=== PATIENT | male | born 1955 | race American Indian/Alaskan Native ===

== ENCOUNTER 2019-04-26 12:54 | Inpatient (IN) | payer MEDICAID ==
--- NOTE | 2019-04-26 14:01 | XRay Report ---
CHEST 1 VIEW 04/26/2019 1:31 PM INDICATION / CLINICAL INFORMATION: chest pain. COMPARISON: Chest x-ray 10/13/2018 FINDINGS: SUPPORT DEVICES: None. HEART / MEDIASTINUM: No significant abnormality. LUNGS / PLEURA: Right upper lobe bronchiectasis/pleural parenchymal scarring is unchanged. No pneumot horax. ADDITIONAL FINDINGS: No significant additional findings. IMPRESSION: 1. Stable chest. Signer Name: Adria Galvin MD Signed: 04/26/2019 1:56 PM Workstation Name: [id number]
[2019-04-26 14:07] LABS: Creatine Kinase MB 1.3 ng/mL (0.0-4.0)
[2019-04-26 14:10] LABS: BUN/Creatinine Ratio 37; Blood Urea Nitrogen 33 mg/dL (9-20); Calcium 9.2 mg/dL (8.4-10.2); Hemolysis Index 22
[2019-04-26 14:11] LABS: Basophils # (Auto) 0.1 K/mm3 (0.0-0.1); Basophils % (Auto) 0.4 % (0.0-1.8); Eosinophils % (Auto) 0.3 % (0.0-4.3); Hematocrit 43.6 % (35.5-45.6); Hemoglobin 14.7 gm/dl (11.8-15.2); Lymphocytes # (Auto) 2.2 K/mm3 (1.2-5.4); Lymphocytes % (Auto) 16.4 % (13.4-35.0); Mean Corpuscular HGB Conc 34 % (32-34); Mean Corpuscular Volume 90 fl (84-94); Monocytes # (Auto) 1.1 K/mm3 (0.0-0.8); Monocytes % (Auto) 8.4 % (0.0-7.3); Platelet Count 209 K/mm3 (140-440); Red Blood Count 4.85 M/mm3 (3.65-5.03); Red Cell Distribution Width 13.7 % (13.2-15.2)
[2019-04-26] MEDS ORDERED: ONDANSETRON 4 MG/2 ML INJ IV ONE ×2 (14:42→21:30)
[2019-04-26] MEDS ORDERED: MORPHINE 4 MG/1 ML INJ IV ONE ×2 (14:42→21:30)
[2019-04-26] MEDS ORDERED: SODIUM CHLORIDE 0.9% 1000 ML 1,000 ML IV ONE ×2 (14:42→16:55)
--- NOTE | 2019-04-26 14:44 | Emergency Department Report ---
ED Chest Pain HPI - General Chief Complaint: Chest Pain Stated Complaint: CHEST PAIN Time Seen by Provider: 04/26/19 14:31 Source: EMS Mode of arrival: Stretcher Limitations: No Limitations - History of Present Illness Severity scale (0 -10): 9 - Related Data Previous Rx's Medication Instructions Recorded Last Taken Type Folic Acid [Folvite] 1 mg PO QDAY #30 tablet 07/18/13 Unknown Rx Hydrocodone Bit/Acetaminophen 1 each PO Q8H PRN #20 tablet 07/18/13 Unknown Rx [Lortab 7.5-500 mg] Nicotine [Habitrol] 14 mg TD Q24H #30 patch 07/18/13 Unknown Rx Pantoprazole [Protonix TAB] 40 mg PO QDAY #30 tablet 07/18/13 Unknown Rx Thiamine [Vitamin B-1] 100 mg PO QDAY #30 tablet 07/18/13 Unknown Rx Allergies Allergy/AdvReac Type Severity Reaction Status Date / Time No Known Allergies Allergy Unverified 07/15/13 16:33 ED Review of Systems ROS: Stated complaint: CHEST PAIN Other details as noted in HPI ED Past Medical Hx - Past Medical History Hx Congestive Heart Failure: No Hx Diabetes: No Hx Liver Disease: Yes (hepatitis C) Hx Headaches / Migraines: Yes (migraines on admission) Hx Asthma: No Hx COPD: No Hx HIV: Yes Additional medical history: alcohol abuse. Hepatitis - Surgical History Additional Surgical History: ? - Social History Smoking Status: Current Every Day Smoker Substance Use Type: Alcohol - Medications Home Medications: Home Medications Medication Instructions Recorded Confirmed Last Taken Type Folic Acid [Folvite] 1 mg PO QDAY #30 tablet 07/18/13 Unknown Rx Hydrocodone Bit/Acetaminophen 1 each PO Q8H PRN #20 tablet 07/18/13 Unknown Rx [Lortab 7.5-500 mg] Nicotine [Habitrol] 14 mg TD Q24H #30 patch 07/18/13 Unknown Rx Pantoprazole [Protonix TAB] 40 mg PO QDAY #30 tablet 07/18/13 Unknown Rx Thiamine [Vitamin B-1] 100 mg PO QDAY #30 tablet 07/18/13 Unknown Rx ED Physical Exam - General Limitations: No Limitations ED Course Vital Signs 04/26/19 04/26/19 04/26/19 13:14 13:25 13:29 Temperature 98.7 F 98.7 F Pulse Rate 90 90 Respiratory 17 23 22 Rate Blood Pressure 93/67 [Left] O2 Sat by Pulse 94 96 Oximetry ED Medical Decision Making - Lab Data Result diagrams: 04/26/19 13:17 04/26/19 13:17 - Radiology Data Radiology results: report reviewed Patient: ZURI CASTANEDA MR#: [id number] : 1955 Acct:[id number] Age/Sex: 64 / M ADM Date: 04/26/19 Loc: ED Attending Dr: Ordering Physician: MAYLIN NICHOLAS MD Date of Service: 04/26/19 Procedure(s): XR chest 1V ap Accession Number(s): [id number] cc: MAYLIN NICHOLAS MD Fluoro Time In Minutes: CHEST 1 VIEW 04/26/2019 1:31 PM INDICATION / CLINICAL INFORMATION: chest pain. COMPARISON: Chest x-ray 10/13/2018 FINDINGS: SUPPORT DEVICES: None. HEART / MEDIASTINUM: No significant abnormality. LUNGS / PLEURA: Right upper lobe bronchiectasis/pleural parenchymal scarring is unchanged. No pneumothorax. ADDITIONAL FINDINGS: No significant additional findings. IMPRESSION: 1. Stable chest. Signer Name: Adria Galvin MD Signed: 04/26/2019 1:56 PM Workstation Name: [id number] Transcribed By: TL Dictated By: Adria Galvin MD Electronically Authenticated By: Adria Galvin MD Signed Date/Time: 04/26/19 1356 DD/ 1354 TD/TT: Critical care attestation.: If time is entered above; I have spent that time in minutes in the direct care of this critically ill patient, excluding procedure time. ED Disposition Condition: Stable
[2019-04-26] MEDS ORDERED: SODIUM CHLORIDE 0.9% 1000 ML 1,000 ML ONE (14:45)
[2019-04-26] MEDS ORDERED: ONDANSETRON 4 MG/2 ML INJ ONE ×2 (14:45→21:28)
[2019-04-26] MEDS ORDERED: MORPHINE 4 MG/1 ML INJ ONE (14:45)
--- NOTE | 2019-04-26 14:49 | Emergency Department Report ---
ED General Adult HPI - General Chief complaint: Chest Pain Stated complaint: CHEST PAIN Time Seen by Provider: 04/26/19 14:31 Source: EMS Mode of arrival: Stretcher Limitations: No Limitations - History of Present Illness Initial comments: 64-year-old -[place] male presented to the emergency room for chest pain and epigastric pain 4 days. Patient reports he he has nausea vomiting decreased appetite. Patient reports he's been drinking a lot of alcohol to help with this pain. Patient does have a significant past medical history of HIV, pancreatitis. Patient reports no surgeries. Patient reports he is on HIV medications and vitamins. Onset/Timin -: days(s) Location: chest, abdomen (epigastric) Severity scale (0 -10): 9 Quality: stabbing, sharp Consistency: constant Improves with: none Worsens with: none Associated Symptoms: loss of appetite, nausea/vomiting. denies: fever/chills Treatments Prior to Arrival: none - Related Data Previous Rx's Medication Instructions Recorded Last Taken Type Folic Acid [Folvite] 1 mg PO QDAY #30 tablet 07/18/13 Unknown Rx Hydrocodone Bit/Acetaminophen 1 each PO Q8H PRN #20 tablet 07/18/13 Unknown Rx [Lortab 7.5-500 mg] Nicotine [Habitrol] 14 mg TD Q24H #30 patch 07/18/13 Unknown Rx Pantoprazole [Protonix TAB] 40 mg PO QDAY #30 tablet 07/18/13 Unknown Rx Thiamine [Vitamin B-1] 100 mg PO QDAY #30 tablet 07/18/13 Unknown Rx Allergies Allergy/AdvReac Type Severity Reaction Status Date / Time No Known Allergies Allergy Unverified 07/15/13 16:33 ED Review of Systems ROS: Stated complaint: CHEST PAIN Other details as noted in HPI Comment: All other systems reviewed and negative Constitutional: no symptoms reported. denies: chills, fever Eyes: denies: eye pain, eye discharge, vision change ENT: denies: ear pain, throat pain Respiratory: no symptoms reported Cardiovascular: chest pain Gastrointestinal: abdominal pain, nausea, vomiting Genitourinary: denies: urgency, dysuria Musculoskeletal: denies: back pain, joint swelling, arthralgia Skin: denies: rash, lesions Neurological: denies: headache, weakness, paresthesias ED Past Medical Hx - Past Medical History Hx Congestive Heart Failure: No Hx Diabetes: No Hx Liver Disease: Yes (hepatitis C) Hx Headaches / Migraines: Yes (migraines on admission) Hx Asthma: No Hx COPD: No Hx HIV: Yes Additional medical history: alcohol abuse. Hepatitis - Surgical History Additional Surgical History: ? - Social History Smoking Status: Current Every Day Smoker Substance Use Type: Alcohol - Medications Home Medications: Home Medications Medication Instructions Recorded Confirmed Last Taken Type Folic Acid [Folvite] 1 mg PO QDAY #30 tablet 07/18/13 Unknown Rx Hydrocodone Bit/Acetaminophen 1 each PO Q8H PRN #20 tablet 07/18/13 Unknown Rx [Lortab 7.5-500 mg] Nicotine [Habitrol] 14 mg TD Q24H #30 patch 07/18/13 Unknown Rx Pantoprazole [Protonix TAB] 40 mg PO QDAY #30 tablet 07/18/13 Unknown Rx Thiamine [Vitamin B-1] 100 mg PO QDAY #30 tablet 07/18/13 Unknown Rx ED Physical Exam - General Limitations: No Limitations General appearance: cachectic, other (temporal wasting) - Head Head exam: Present: atraumatic, normocephalic - Eye Eye exam: Present: PERRL, EOMI - ENT ENT exam: Present: mucous membranes moist - GI/Abdominal GI/Abdominal exam: Present: tenderness, guarding - Neurological Exam Neurological exam: Present: alert, oriented X3 - Psychiatric Psychiatric exam: Present: normal affect, normal mood - Skin Skin exam: Present: warm, dry, intact, normal color. Absent: rash ED Course Vital Signs 04/26/19 04/26/19 04/26/19 13:14 13:20 13:25 Temperature 98.7 F Pulse Rate 90 91 H Respiratory 17 21 23 Rate Blood Pressure Blood Pressure [Left] O2 Sat by Pulse 99 94 Oximetry 04/26/19 04/26/19 04/26/19 13:29 13:30 13:46 Temperature 98.7 F Pulse Rate 90 89 89 Respiratory 22 18 24 Rate Blood Pressure 93/67 93/67 Blood Pressure 93/67 [Left] O2 Sat by Pulse 96 96 96 Oximetry 04/26/19 04/26/19 04/26/19 14:00 14:15 14:30 Temperature Pulse Rate 94 H 90 90 Respiratory 17 18 17 Rate Blood Pressure 102/68 96/70 101/70 Blood Pressure [Left] O2 Sat by Pulse 95 Oximetry 04/26/19 04/26/19 14:45 14:54 Temperature Pulse Rate 93 H Respiratory 24 18 Rate Blood Pressure 100/69 Blood Pressure [Left] O2 Sat by Pulse 97 Oximetry ED Medical Decision Making - Lab Data Result diagrams: 04/26/19 13:17 04/26/19 13:17 Laboratory Tests 04/26/19 04/26/19 04/26/19 13:17 13:17 13:17 WBC 13.3 H RBC 4.85 Hgb 14.7 Hct 43.6 MCV 90 MCH 30 MCHC 34 RDW 13.7 Plt Count 209 Lymph % (Auto) 16.4 [place] % (Auto) 8.4 H Eos % (Auto) 0.3 Baso % (Auto) 0.4 Lymph # 2.2 [place] # 1.1 H Eos # 0.0 Baso # 0.1 Seg Neutrophils % 74.5 H Seg Neutrophils # 9.9 H Sodium 133 L Potassium 3.0 L Chloride 80.4 L Carbon Dioxide 30 Anion Gap 26 BUN 33 H Creatinine 0.9 Estimated GFR > 60 BUN/Creatinine Ratio 37 Glucose 116 H Calcium 9.2 Total Creatine Kinase 99 CK-MB (CK-2) 1.3 CK-MB (CK-2) Rel Index 1.3 Troponin T < 0.010 NT-Pro-B Natriuret Pep 319.5 Lipase 38 - Radiology Data Radiology results: report reviewed Patient: ZURI CASTANEDA MR#: [id number] : 1955 Acct:[id number] Age/Sex: 64 / M ADM Date: 04/26/19 Loc: ED Attending Dr: Ordering Physician: GAGAN WILKINS Date of Service: 04/26/19 Procedure(s): CT abdomen pelvis w con Accession Number(s): [id number] cc: GAGAN WILKINS CT CHEST, ABDOMEN, AND PELVIS WITH IV CONTRAST INDICATION / CLINICAL INFORMATION: epigastric pain w/ N/V. TECHNIQUE: Axial CT images were obtained through the chest, abdomen, and pelvis after 100 cc Omnipaque [address] scans at this location are performed using CT dose reduction for ALARA by means of automated exposure control. COMPARISON: None available. FINDINGS: Exam is limited secondary to moderate amount of respiratory artifact. HEART: No significant abnormality. THORACIC AORTA: No significant abnormality. MEDIASTINUM and JORDAN: No significant abnormality. LUNGS: Right upper lobe volume loss, scarring and bronchiectasis. Moderate destructive biapical bullous emphysema PLEURA: No significant pleural effusion. No pneumothorax. ADDITIONAL CHEST FINDINGS: None. LIVER: No significant abnormality. GALLBLADDER: Several tiny gallstones without CT evidence for cholecystitis. BILE DUCTS: No significant abnormality. PANCREAS: No significant abnormality. SPLEEN: No significant abnormality. ADRENALS: Bilateral plump adrenal glands without suspicious adrenal nodule or mass. RIGHT KIDNEY and URETER: No significant abnormality. LEFT KIDNEY and URETER: No significant abnormality. STOMACH and SMALL BOWEL: No significant abnormality. COLON: No significant abnormality. APPENDIX: Normal PERITONEUM: No free fluid. No free air. No fluid collection. LYMPH NODES: No significant adenopathy. AORTA and ARTERIES: Moderate vascular calcifications. No occlusive disease. IVC and VEINS: No significant abnormality. URINARY BLADDER: No significant abnormality. REPRODUCTIVE ORGANS: No significant abnormality. ADDITIONAL FINDINGS: None. SKELETAL SYSTEM: Moderate degenerative changes of lower lumbar spine with chronic bilateral L5 spondylolysis and grade 1 anterolisthesis of L5 on S1. IMPRESSION: 1. Right upper lobe bronchiectasis/scarring and volume loss. 2. Destructive bullous emphysema. 3. Cholelithiasis. Signer Name: Adria Galvin MD Signed: 04/26/2019 4:43 PM Workstation Name: [id number] Transcribed By: TL Dictated By: Adria Galvin MD Electronically Authenticated By: Adria Galvin MD Signed Date/Time: 04/26/19 164 DD/ 36 TD/TT: Patient: ZURI CASTANEDA MR#: [id number] : 1955 Acct:[id number] Age/Sex: 64 / M ADM Date: 04/26/19 Loc: ED Attending Dr: Ordering Physician: MAYLIN NICHOLAS MD Date of Service: 04/26/19 Procedure(s): XR chest 1V ap Accession Number(s): [id number] cc: MAYLIN NICHOLAS MD Fluoro Time In Minutes: CHEST 1 VIEW 04/26/2019 1:31 PM INDICATION / CLINICAL INFORMATION: chest pain. COMPARISON: Chest x-ray 10/13/2018 FINDINGS: SUPPORT DEVICES: None. HEART / MEDIASTINUM: No significant abnormality. LUNGS / PLEURA: Right upper lobe bronchiectasis/pleural parenchymal scarring is unchanged. No pneumothorax. ADDITIONAL FINDINGS: No significant additional findings. IMPRESSION: 1. Stable chest. Signer Name: Adria Galvin MD Signed: 04/26/2019 1:56 PM Workstation Name: [id number] Transcribed By: TL Dictated By: Adria Galvin MD Electronically Authenticated By: Adria Galvin MD Signed Date/Time: 04/26/191355 DD/ 53 TD/TT: - Medical Decision Making 64-year-old -[place] male presented to the emergency room for chest pain and epigastric pain 4 days. Patient reports he he has nausea vomiting decreased appetite. Patient reports he's been drinking a lot of alcohol to help with this pain. Patient does have a significant past medical history of HIV, pancreatitis. Patient reports no surgeries. Patient reports he is on HIV medications and vitamins. CBC, CMP, chest x-ray, CT chest and CT abdomen, Zofran, morphine given for pain management Discussed case with Dr. Hoffman. Spoke with Dr. Castañeda hospitalists willing to admit patient. Critical care attestation.: If time is entered above; I have spent that time in minutes in the direct care of this critically ill patient, excluding procedure time. ED Disposition Clinical Impression: HIV (human immunodeficiency virus infection) Qualifiers: HIV symptom status: unspecified Qualified Code(s): B20 - Human immunodeficiency virus [HIV] disease Elevated white blood cell count Qualifiers: Leukocytosis type: unspecified Qualified Code(s): D72.829 - Elevated white blood cell count, unspecified Disposition: -09 OP ADMIT IP TO THIS HOSP Is pt being admited?: Yes Does the pt Need Aspirin: No Condition: Stable
--- NOTE | 2019-04-26 16:48 | Cat Scan Report ---
CT CHEST, ABDOMEN, AND PELVIS WITH IV CONTRAST INDICATION / CLINICAL INFORMATION: epigastric pain w/ N/V. TECHNIQUE: Axial CT images were obtained through the chest, abdomen, and pelvis after 100 cc Omnipaque [address] scans at this location are performed using CT dose reduction for ALARA by means of aut omated exposure control. COMPARISON: None available. FINDINGS: Exam is limited secondary to moderate amount of respiratory artifact. HEART: No significant abnormality. THORACIC AORTA: No significant abnormality. MEDIASTINUM and JORDAN: No significant abnormality. LUNGS: Right upper lobe volume loss, scarring and bronchiectasis. Moderate destructive biapical bullo us emphysema PLEURA: No significant pleural effusion. No pneumothorax. ADDITIONAL CHEST FINDINGS: None. LIVER: No significant abnormality. GALLBLADDER: Several tiny gallstones without CT evidence for cholecystitis. BILE DUCTS: No significant abnormality. PANCREAS: No significant abnormality. SPLEEN: No significant abnormality. ADRENALS: Bilateral plump adrenal glands without suspicious adrenal nodule or mass. RIGHT KIDNEY and URETER: No significant abnormality. LEFT KIDNEY and URETER: No significant abnormality. STOMACH and SMALL BOWEL: No significant abnormality. COLON: No significant abnormality. APPENDIX: Normal PERITONEUM: No free fluid. No free air. No fluid collection. LYMPH NODES: No significant adenopathy. AORTA and ARTERIES: Moderate vascular calcifications. No occlusive disease. IVC and VEINS: No significant abnormality. URINARY BLADDER: No significant abnormality. REPRODUCTIVE ORGANS: No significant abnormality. ADDITIONAL FINDINGS: None. SKELETAL SYSTEM: Moderate degenerative changes of lower lumbar spine with chronic bilateral L5 spondy lolysis and grade 1 anterolisthesis of L5 on S1. IMPRESSION: 1. Right upper lobe bronchiectasis/scarring and volume loss. 2. Destructive bullous emphysema. 3. Cholelithiasis. Signer Name: Adria Galvin MD Signed: 04/26/2019 4:43 PM Workstation Name: [employer] [place]
[2019-04-26] MEDS ORDERED: POTASSIUM CHLORIDE ER 20 MEQ TAB PO ONE ×2 (17:17→19:24)
[2019-04-26 18:40] LABS: Albumin 3.8 g/dL (3.9-5); Bilirubin,Direct 0.5 mg/dL (0-0.2)
[2019-04-26] MEDS ORDERED: ACETAMINOPHEN PO PRN (19:01)
[2019-04-26] MEDS ORDERED: HYDROCODONE BIT PO PRN (19:01)
--- NOTE | 2019-04-26 19:03 | History and Physical Report ---
History of Present Illness Chief complaint: Im hurting History of present illness: 64 YO Male with HIV, Nicotine Dependence, ETOH Dependence, Severe Malnutrition, HCV presents to ED for evaluation. Pt states that he has experienced pain in his chest area over the past 4 days. Upon further evaluation, the patient localized the hypogastric area as the location of his pain. Pt acknowledges drinking unknown quantities of ETOH over the past 5 days to treat his pain. EMS notified, and upon arrival the patient was found to be in distress. Pt transported to [facility] via private vehicle. Pt seen and evaluated in ED and found to have SIRS, HIV Disease, Hypokalemia, Hyponatreamia, and Severe Malnutrition. Pt admitted to medical floor. Pt initiated on IV antibiotic therapy. Pt denies fever, chills, Palpitations, NVD, Trauma, BRBPR, Productive cough, skin rash, or recent ill contacts. Prior admission on 07/15/13 reviewed. All listed medication reconciled at time of admission. Past History Past Medical History: hepatitis, HIV/AIDS, other (Severe Malnutrition) Past Surgical History: No surgical history, Other (reviewed) Social history: smoking, alcohol abuse Family history: no significant family history Medications and Allergies Allergies Allergy/AdvReac Type Severity Reaction Status Date / Time No Known Allergies Allergy Unverified 07/15/13 16:33 Home Medications Medication Instructions Recorded Confirmed Last Taken Type Folic Acid [Folvite] 1 mg PO QDAY #30 tablet 07/18/13 Unknown Rx Hydrocodone Bit/Acetaminophen 1 each PO Q8H PRN #20 tablet 07/18/13 Unknown Rx [Lortab 7.5-500 mg] Nicotine [Habitrol] 14 mg TD Q24H #30 patch 07/18/13 Unknown Rx Pantoprazole [Protonix TAB] 40 mg PO QDAY #30 tablet 07/18/13 Unknown Rx Thiamine [Vitamin B-1] 100 mg PO QDAY #30 tablet 07/18/13 Unknown Rx Active Meds: Active Medications Folic Acid (Folvite) 1 mg PO QDAY FER Miscellaneous Medication (Hydrocodone Bit/Acetaminophen [Lortab 7.5-500 Mg]) 1 each PO Q8H PRN PRN Reason: PAIN Nicotine (Habitrol) 14 mg TD Q24H FER Pantoprazole Sodium (Protonix) 40 mg PO QDAY FER Thiamine HCl (Vitamin B-1) 100 mg PO QDAY FER Review of Systems Constitutional: weight loss, weakness, no weight gain, no fever, no chills Ears, nose, mouth and throat: no ear pain, no ear discharge, no decreased hearing Cardiovascular: no chest pain, no orthopnea, no palpitations, no rapid/irregular heart beat Respiratory: no cough, no cough with sputum, no excessive sputum, no hemoptysis Gastrointestinal: abdominal pain, loss of appetite, no constipation, no change in bowel habits, no hematemesis, no coffee ground emesis, no BRBPR, no melena, no indigestion Genitourinary Male: no dysuria, no hematuria, no flank pain, no discharge, no urinary frequency, no urinary hesitancy Rectal: no pain, no incontinence, no bleeding Musculoskeletal: no neck stiffness, no neck pain, no shooting arm pain, no arm numbness/tingling, no shooting leg pain Integumentary: no rash, no pruritis, no redness, no sores, no wounds, no jaundice Neurological: no transient paralysis, no paralysis, no weakness, no parathesias, no numbness, no tingling, no seizures Psychiatric: no anxiety, no memory loss, no change in sleep habits, no sleep disturbances, no insomnia, no hypersomnia, no change in libido Endocrine: no cold intolerance, no heat intolerance, no polyphagia, no excessive thirst, no polydipsia, no polyuria, no nocturia Hematologic/Lymphatic: no easy bruising, no easy bleeding, no lymphadenopathy, no lymphedema Allergic/Immunologic: no urticaria, no allergic rhinitis, no wheezing, no persistent infections, no anaphylaxis Exam - Constitutional Vitals: Temp Pulse Resp BP Pulse Ox 98.7 F 93 H 18 100/69 97 04/26/19 13:29 04/26/19 14:45 04/26/19 14:54 04/26/19 14:45 04/26/19 14:45 General appearance: Present: mild distress - EENT Eyes: Present: PERRL ENT: hearing intact, clear oral mucosa - Neck Neck: Present: supple, normal ROM - Respiratory Respiratory effort: normal Respiratory: bilateral: CTA - Cardiovascular Heart Sounds: Present: S1 & S2. Absent: rub, click - Extremities Extremities: pulses symmetrical, No edema Peripheral Pulses: within normal limits - Abdominal General gastrointestinal: Present: soft, non-tender, non-distended, normal bowel sounds Male genitourinary: Present: normal - Integumentary Integumentary: Present: clear, warm, dry - Musculoskeletal Musculoskeletal: gait normal, strength equal bilaterally - Psychiatric Psychiatric: appropriate mood/affect, intact judgment & insight - Neurologic Neurologic: CNII-XII intact, moves all extremities Results - Labs CBC & Chem 7: 04/26/19 13:17 04/26/19 13:17 Labs: Abnormal lab results 04/26/19 04/26/19 04/26/19 Range/Units 13:17 13:17 18:00 WBC 13.3 H (4.5-11.0) K/mm3 [place] % (Auto) 8.4 H (0.0-7.3) % [place] # 1.1 H (0.0-0.8) K/mm3 Seg Neutrophils % 74.5 H (40.0-70.0) % Seg Neutrophils # 9.9 H (1.8-7.7) K/mm3 Sodium 133 L (137-145) mmol/L Potassium 3.0 L (3.6-5.0) mmol/L Chloride 80.4 L (98-107) mmol/L BUN 33 H (9-20) mg/dL Glucose 116 H (75-100) mg/dL Total Bilirubin 1.70 H (0.1-1.2) mg/dL Direct Bilirubin 0.5 H (0-0.2) mg/dL Total Protein 6.2 L (6.3-8.2) g/dL Albumin 3.8 L (3.9-5) g/dL Assessment and Plan - Patient Problems (1) SIRS (systemic inflammatory response syndrome) Current Visit: Yes Status: Acute Plan to address problem: IV antibiotic therapy, IVF resuscitation therapy, CBC, CMP, Urinalysis, Chest x ray, Empiric IV Azithromycin, CT head, (2) Hypokalemia Current Visit: Yes Status: Acute Plan to address problem: Repleted in ED, repeat bmp in am. (3) Hyponatremia syndrome Current Visit: Yes Status: Acute Plan to address problem: IVF resuscitation therapy, repeat bmp in am. (4) HIV (human immunodeficiency virus infection) Current Visit: Yes Status: Chronic Qualifiers: HIV symptom status: unspecified Qualified Code(s): B20 - Human immunodeficiency virus [HIV] disease Plan to address problem: Supportive care, Outpatient ID F/U care. (5) Alcohol abuse Current Visit: No Status: Chronic Plan to address problem: Thiamine, folic Acid, Multivitamin, supportive care, CIWA protocol (6) Nicotine dependence Current Visit: Yes Status: Acute Qualifiers: Substance use status: in withdrawal Plan to address problem: smoking cessation counseling, supportive care, habitrol patch (7) DVT prophylaxis Current Visit: No Status: Acute Plan to address problem: SCD to BLE while in bed, supportive care.
[2019-04-26] MEDS ORDERED: LORazepam 2 MG/ML VIAL IV PRN (19:04)
[2019-04-26] MEDS ORDERED: AZITHROMYCIN 500 MG in SODIUM CHLORIDE 0.9% 250ML 250 ML IV SCH (20:00)
[2019-04-26] MEDS: NICOTINE 14 MG/24 HR PATCH TD SCH (20:27)
--- NOTE | 2019-04-26 20:58 | Cat Scan Report ---
CT head/brain wo con INDICATION / CLINICAL INFORMATION: weakness/dizziness. TECHNIQUE: Axial CT imaging of the brain was obtained without contrast. Coronal and sagittal reformatted imaging obtained and reviewed. All CT scans at this location are performed using CT dose reduction for ALAR A by means of automated exposure control. COMPARISON: 08/27/2009 FINDINGS: No intracranial hemorrhage, mass, or midline shift is identified. No extra-axial fluid collection or suggestion of acute territorial infarct. Ventricular system and basilar cisterns are unremarkable. Mi ld to moderate cerebellar/atrophy noted, with associated moderate microvascular angiopathic changes. Visualized paranasal sinuses and mastoid air cells are well aerated and clear. No calvarial abnormali ty. IMPRESSION: 1. No acute intracranial abnormality. Signer Name: Kenia Vera MD Signed: 04/26/2019 8:54 PM Workstation Name: [id number]
[2019-04-26] MEDS ORDERED: MORPHINE 2 MG/1 ML INJ ONE (21:28)
--- NOTE | 2019-04-27 00:17 | Event Note ---
Date: 04/27/19 ORDERS WRTTEN WITH NO ROUTINE ORDER TO ADMIT PUT IN. PLAN; ROUTINE ORDER TO ADMIT PUT IN FOR DR. BOWLING
[2019-04-27] MEDS: HEPARIN 5,000 UNIT/1 ML VIAL SUB-Q SCH ×3 (00:31→21:34)
[2019-04-27] MEDS: HYDROcodone/ACETAMINOPHEN 7.5-325MG TAB PO PRN ×2 (02:29→12:24)
--- NOTE | 2019-04-27 08:10 | Progress Note ---
Assessment and Plan Assessment and plan: 64-year-old man who presents to the hospital with chest pain and epigastric pain x4 days. Admitted to drinking alcohol heavily to help with his pain. Past medical history; pancreatitis, HIV Labs at the time of admission show white count of 13.3, potassium of 3, chloride of 80, BUN of 33 CT chest abdomen pelvis with contrast; right upper lobe bronchiectasis/scarring and volume loss, destructive bullous emphysema, cholelithiasis Abdominal pain Differential diagnoses include gastritis or peptic ulcer disease, lipase was wnl Pain medications, PPI, GI consult elevated D and I bili noted, check LDH, haptoglobulin, repeat D and T bili Severe malnutrition Dietitian consult Etoh dependence and withdrawal - ciwa protocol, thiamine and folate -d5 containing IVF -preventative health counseling performed for 17 minutes Tobacco abuse/dependence Smoking cessation counseling performed for 10 minutes, nicotine patches when necessary Hypokalemia Repleted HIV/AIDS ID consult DVT prophylaxis with Lovenox History Interval history: Continues to complain of abdominal pain near epigastrium No fevers no cough no shortness of breath no chest pain Hospitalist Physical - Physical exam Narrative exam: General.: Mild distress HEENT: Moist mucous membranes, extraocular muscles intact, no lymphadenopathy Neck: supple Cardiac: S1-S2 heard Lungs: Epigastric tenderness Abdomen: soft , epigastric tenderness, nondistended, bowel sounds positive Extremities: no edema clubbing or cyanosis Skin: no rash or lesions Neurologic: no gross focal deficits Psych: calm, and cooperative - Constitutional Vitals: Temp Pulse Resp BP Pulse Ox 98.0 F 76 18 115/79 98 04/27/19 05:55 04/27/19 05:55 04/27/19 05:55 04/27/19 05:55 04/27/19 05:55 General appearance: Present: mild distress Results - Labs CBC & Chem 7: 04/26/19 13:17 04/27/19 08:53 Labs: Laboratory Last Values WBC 13.3 K/mm3 (4.5-11.0) H 04/26/19 13:17 RBC 4.85 M/mm3 (3.65-5.03) 04/26/19 13:17 Hgb 14.7 gm/dl (11.8-15.2) 04/26/19 13:17 Hct 43.6 % (35.5-45.6) 04/26/19 13:17 MCV 90 fl (84-94) 04/26/19 13:17 MCH 30 pg (28-32) 04/26/19 13:17 MCHC 34 % (32-34) 04/26/19 13:17 RDW 13.7 % (13.2-15.2) 04/26/19 13:17 Plt Count 209 K/mm3 (140-440) 04/26/19 13:17 Lymph % (Auto) 16.4 % (13.4-35.0) 04/26/19 13:17 [place] % (Auto) 8.4 % (0.0-7.3) H 04/26/19 13:17 Eos % (Auto) 0.3 % (0.0-4.3) 04/26/19 13:17 Baso % (Auto) 0.4 % (0.0-1.8) 04/26/19 13:17 Lymph # 2.2 K/mm3 (1.2-5.4) 04/26/19 13:17 [place] # 1.1 K/mm3 (0.0-0.8) H 04/26/19 13:17 Eos # 0.0 K/mm3 (0.0-0.4) 04/26/19 13:17 Baso # 0.1 K/mm3 (0.0-0.1) 04/26/19 13:17 Seg Neutrophils % 74.5 % (40.0-70.0) H 04/26/19 13:17 Seg Neutrophils # 9.9 K/mm3 (1.8-7.7) H 04/26/19 13:17 Sodium 133 mmol/L (137-145) L 04/26/19 13:17 Potassium 3.0 mmol/L (3.6-5.0) L 04/26/19 13:17 Chloride 80.4 mmol/L (98-107) L 04/26/19 13:17 Carbon Dioxide 30 mmol/L (22-30) 04/26/19 13:17 Anion Gap 26 mmol/L 04/26/19 13:17 BUN 33 mg/dL (9-20) H 04/26/19 13:17 Creatinine 0.9 mg/dL (0.8-1.5) 04/26/19 13:17 Estimated GFR > 60 ml/min 04/26/19 13:17 BUN/Creatinine Ratio 37 % 04/26/19 13:17 Glucose 116 mg/dL (75-100) H 04/26/19 13:17 Calcium 9.2 mg/dL (8.4-10.2) 04/26/19 13:17 Total Bilirubin 1.70 mg/dL (0.1-1.2) H 04/26/19 18:00 Direct Bilirubin 0.5 mg/dL (0-0.2) H 04/26/19 18:00 Indirect Bilirubin 1.2 mg/dL 04/26/19 18:00 AST 23 units/L (5-40) 04/26/19 18:00 ALT 34 units/L (7-56) 04/26/19 18:00 Alkaline Phosphatase 56 units/L (35-129) 04/26/19 18:00 Total Creatine Kinase 99 units/L (55-170) 04/26/19 13:17 CK-MB (CK-2) 1.3 ng/mL (0.0-4.0) 04/26/19 13:17 CK-MB (CK-2) Rel Index 1.3 (0-4) 04/26/19 13:17 Troponin T < 0.010 ng/mL (0.00-0.029) 04/26/19 13:17 NT-Pro-B Natriuret Pep 319.5 pg/mL (0-900) 04/26/19 13:17 Total Protein 6.2 g/dL (6.3-8.2) L 04/26/19 18:00 Albumin 3.8 g/dL (3.9-5) L 04/26/19 18:00 Albumin/Globulin Ratio 1.6 % 04/26/19 18:00 Lipase 38 units/L (13-60) 04/26/19 13:17 Plasma/Serum Alcohol < 0.01 % (0-0.07) 04/26/19 18:00 Active Medications - Current Medications Current Medications: Generic Name Dose Route Start Last Admin Trade Name Freq PRN Reason Stop Dose Admin Acetaminophen/Hydrocodone Bitart 1 each 04/26/19 19:10 04/27/19 02:29 [place] 7.5/325 PO 1 each Q8H PRN Administration Pain, Moderate (4-6) Folic Acid 1 mg 04/27/19 10:00 Folvite PO QDAY FER Heparin Sodium (Porcine) 5,000 unit 04/27/19 00:15 04/27/19 00:31 Heparin SUB-Q 5,000 unit Q12HR [facility]ER Administration Azithromycin 500 mg/ Sodium 250 mls @ 250 mls/hr 04/26/19 20:00 04/26/19 20:27 Chloride IV 250 mls/hr Q24H [facility]ER Administration Protocol Lorazepam 2 mg 04/26/19 19:04 Ativan IV Q1H PRN CIWA-Ar 8-15 Nicotine 14 mg 04/26/19 20:00 04/26/19 20:27 Habitrol TD 14 mg Q24H FER Administration Pantoprazole Sodium 40 mg 04/27/19 10:00 Protonix PO QDAY FER Thiamine HCl 100 mg 04/27/19 10:00 Vitamin B-1 PO QDAY FER
[2019-04-27] MEDS ORDERED: THIAMINE 100 MG TAB PO SCH (10:00)
[2019-04-27] MEDS ORDERED: POTASSIUM CHLORIDE IV NR (10:00)
[2019-04-27] MEDS ORDERED: D5W IV NR (10:00)
[2019-04-27] MEDS ORDERED: PANTOPRAZOLE 40 MG TAB PO SCH (10:00)
[2019-04-27] MEDS ORDERED: NACL IV NR (10:00)
[2019-04-27] MEDS ORDERED: FOLIC ACID 1 MG TAB PO SCH (10:00)
[2019-04-27 11:18] LABS: Alanine Aminotransferase 34 units/L (7-56); Albumin 3.9 g/dL (3.9-5); BUN/Creatinine Ratio 30; Bilirubin,Direct 0.6 mg/dL (0-0.2); Blood Urea Nitrogen 24 mg/dL (9-20); Calcium 9.5 mg/dL (8.4-10.2); Hemolysis Index 5
--- NOTE | 2019-04-27 11:24 | History and Physical Report ---
History of Present Illness Date of examination: 04/27/19 Date of admission: 04/27/19 00:08 History of present illness: 64 yo M PMHx HIV, nicotine and EtOH dependence, HCV, malnutrition presented to the ED complaining of chest pain which began 4 days prior to presentation. He notes the pain was largely in the hypogastric area and was associated with high volumes of alcohol intake for the past 5 days which he was using to self medicate his chronic pain. He otherwise denies fevers, sweats, chills. His CD4 measured here in 2012 was 653. He [facility] his [facility] and is undetectable on Genvoya. Afebrile since admission with a white count of 13. He is currently receiving azithromycin. Imaging personally reviewed: Chest CT: bronchectasis with bullous emphysema. Cholelithasis. Past History Past Medical History: hepatitis, HIV/AIDS, other (Severe Malnutrition) Past Surgical History: No surgical history, Other (reviewed) Social history: smoking, alcohol abuse Family history: no significant family history Medications and Allergies Allergies Allergy/AdvReac Type Severity Reaction Status Date / Time No Known Allergies Allergy Unverified 07/15/13 16:33 Home Medications Medication Instructions Recorded Confirmed Last Taken Type Folic Acid [Folvite] 1 mg PO QDAY #30 tablet 07/18/13 Unknown Rx Hydrocodone Bit/Acetaminophen 1 each PO Q8H PRN #20 tablet 07/18/13 Unknown Rx [Lortab 7.5-500 mg] Nicotine [Habitrol] 14 mg TD Q24H #30 patch 07/18/13 Unknown Rx Pantoprazole [Protonix TAB] 40 mg PO QDAY #30 tablet 07/18/13 Unknown Rx Thiamine [Vitamin B-1] 100 mg PO QDAY #30 tablet 07/18/13 Unknown Rx Active Meds: Active Medications Acetaminophen/Hydrocodone Bitart ([place] 7.5/325) 1 each PO Q8H PRN PRN Reason: Pain, Moderate (4-6) Last Admin: 04/27/19 02:29 Dose: 1 each Documented by: Folic Acid (Folvite) 1 mg PO QDAY [facility] Last Admin: 04/27/19 09:13 Dose: 1 mg Documented by: Heparin Sodium (Porcine) (Heparin) 5,000 unit SUB-Q Q12HR [facility] Last Admin: 04/27/19 09:29 Dose: 5,000 unit Documented by: Azithromycin 500 mg/ Sodium (Chloride) 250 mls @ 250 mls/hr IV Q24H [facility]; Protocol Last Admin: 04/26/19 20:27 Dose: 250 mls/hr Documented by: Potassium Chloride 20 meq/ (Dextrose/Sodium Chloride) 1,010 mls @ 125 mls/hr IV DIRECT NR Stop: 04/27/19 18:00 Last Admin: 04/27/19 10:53 Dose: 125 mls/hr Documented by: Lorazepam (Ativan) 2 mg IV Q1H PRN PRN Reason: CIWA-Ar 8-15 Nicotine (Habitrol) 14 mg TD Q24H [facility] Last Admin: 04/26/19 20:27 Dose: 14 mg Documented by: Pantoprazole Sodium (Protonix) 40 mg PO QDAY [facility] Last Admin: 04/27/19 09:13 Dose: 40 mg Documented by: Thiamine HCl (Vitamin B-1) 100 mg PO QDAY [facility] Last Admin: 04/27/19 09:13 Dose: 100 mg Documented by: Review of Systems General: no Chills, no Night Sweats Ears, nose, mouth and throat: no ear pain, no ear discharge, no decreased hearing Cardiovascular: no chest pain, no orthopnea, no palpitations, no rapid/irregular heart beat Respiratory: no cough, no cough with sputum, no excessive sputum, no hemoptysis Gastrointestinal: abdominal pain, loss of appetite, no constipation, no change in bowel habits, no hematemesis, no coffee ground emesis, no BRBPR, no melena, no indigestion Genitourinary: no dysuria, no hematuria, no flank pain, no discharge, no urinary frequency, no urinary hesitancy Musculoskeletal: no neck stiffness, no neck pain, no shooting arm pain, no arm numbness/tingling, no shooting leg pain Integumentary: no rash, no pruritis, no redness, no sores, no wounds, no jaundice Neurological: no transient paralysis, no paralysis, no weakness, no parathesias, no numbness, no tingling, no seizures Psychiatric: no anxiety, no memory loss, no change in sleep habits, no sleep disturbances, no insomnia, no hypersomnia, no change in libido Endocrine: no cold intolerance, no heat intolerance, no polyphagia, no excessive thirst, no polydipsia, no polyuria, no nocturia Hematologic/Lymphatic: no easy bruising, no easy bleeding, no lymphadenopathy, no lymphedema Allergic/Immunologic: no urticaria, no allergic rhinitis, no wheezing, no persistent infections, no anaphylaxis Physical Examination - Physical Exam Narrative exam: Constitutional: Alert, cooperative. No acute distress Head, Ears, Nose: Normocephalic, atraumatic. External ears, nose normal Eyes: Conjunctivae/corneas clear. No icterus. No ptosis. Neck: Supple, no meningeal signs Oral: dentition fair, no thrush Cardiovascular: S1, S2 normal. Respiratory: Good air entry, clear to auscultation bilaterally GI: Soft, non-tender; bowel sounds normal. No peritoneal signs. Musculoskeletal: No pedal edema, no cyanosis. Skin: No rash or abscess Hem/Lymphatic: No palpable cervical or supraclavicular nodes. No lymphangitis Psych: Mood ok. Affect normal Neurological: Awake, alert, oriented. No gross abnormality - Constitutional Vitals: Vital Signs Temp Pulse Resp BP Pulse Ox 98.0 F 76 18 115/79 98 04/27/19 05:55 04/27/19 05:55 04/27/19 05:55 04/27/19 05:55 04/27/19 05:55 Temperature -Last 24 Hours Temperature 98.0 F Temperature 98.0 F Temperature 97.9 F Temperature 98.7 F Temperature 98.7 F Results - Labs CBC & Chem 7: 04/26/19 13:17 04/27/19 08:53 Labs: Abnormal lab results 04/26/19 04/26/19 04/26/19 Range/Units 13:17 13:17 18:00 WBC 13.3 H (4.5-11.0) K/mm3 [place] % (Auto) 8.4 H (0.0-7.3) % Yates # 1.1 H (0.0-0.8) K/mm3 Seg Neutrophils % 74.5 H (40.0-70.0) % Seg Neutrophils # 9.9 H (1.8-7.7) K/mm3 Sodium 133 L (137-145) mmol/L Potassium 3.0 L (3.6-5.0) mmol/L Chloride 80.4 L (98-107) mmol/L Carbon Dioxide (22-30) mmol/L BUN 33 H (9-20) mg/dL Glucose 116 H (75-100) mg/dL Magnesium (1.7-2.3) mg/dL Total Bilirubin 1.70 H (0.1-1.2) mg/dL Direct Bilirubin 0.5 H (0-0.2) mg/dL Total Protein 6.2 L (6.3-8.2) g/dL Albumin 3.8 L (3.9-5) g/dL 04/27/19 04/27/19 Range/Units 08:53 08:53 WBC (4.5-11.0) K/mm3 [place] % (Auto) (0.0-7.3) % Yates # (0.0-0.8) K/mm3 Seg Neutrophils % (40.0-70.0) % Seg Neutrophils # (1.8-7.7) K/mm3 Sodium (137-145) mmol/L Potassium (3.6-5.0) mmol/L Chloride 92.1 L (98-107) mmol/L Carbon Dioxide 32 H (22-30) mmol/L BUN 24 H (9-20) mg/dL Glucose (75-100) mg/dL Magnesium 2.50 H (1.7-2.3) mg/dL Total Bilirubin 2.10 H (0.1-1.2) mg/dL Direct Bilirubin 0.6 H (0-0.2) mg/dL Total Protein (6.3-8.2) g/dL Albumin (3.9-5) g/dL Assessment and Plan Cultures: None obtained. 64 yo M PMHx HIV, nicotine and EtOH dependence, HCV, malnutrition admitted with hypogastric pain. 1. Abdominal pain - unclear etiology, most likely related to his severe EtOH and tobacco abuse. Pending GI workup. He largely lacks symptoms of infection at present, as such would stop azithromycin pending GI evaluation. White count is mildly elevated, but his HgB is higher than previous and may represent hemoconcentration. 2. HIV - Will check CD4 and viral load. [facility] Will use dolutegravir/tenofovir/emtricitabine while inpatient, which is similar coverage and will keep him suppressed while he is here. 3. HCV - Likely would not be able to obtain insurance approval for therapy given ongoing heavy EtOH abuse. 4. EtOH dependence 5. Nicotine dependence Recommendations: - ordered CD4 and viral load - stop azithromycin - f/u GI evaluation - start dolutegravir, tenofovir, and emtricitabine. Thank you for the consult, we will continue to follow along. Ifeoma Desai MD [facility] ([facility]) M: [phone] O: [phone] F: [phone]
--- NOTE | 2019-04-27 13:51 | Gastroenterology Consultation ---
History of Present Illness - Reason for Consult Consult date: 04/27/19 abdominal pain Requesting physician: YRN GARZA - History of Present Illness The patient is a 64 yo aam with h/o HIV, alcohol abuse, emphysema presenting with chest pain, dyspnea, and abd pain x 4 days. Pt admits to drinking at least a pint of gin per day. + dyspnea/cp with abd pain and n/v x 4 days. Reports improvement in abd pain today, contnues to have dyspnea. requesting to eat. ct scan of abd without acute findings. Past History Past Medical History: hepatitis, HIV/AIDS, other (Severe Malnutrition) Past Surgical History: No surgical history, Other (reviewed) Social history: smoking, alcohol abuse Family history: no significant family history Medications and Allergies Allergies Allergy/AdvReac Type Severity Reaction Status Date / Time No Known Allergies Allergy Unverified 07/15/13 16:33 Home Medications Medication Instructions Recorded Confirmed Last Taken Type Folic Acid [Folvite] 1 mg PO QDAY #30 tablet 07/18/13 Unknown Rx Hydrocodone Bit/Acetaminophen 1 each PO Q8H PRN #20 tablet 07/18/13 Unknown Rx [Lortab 7.5-500 mg] Nicotine [Habitrol] 14 mg TD Q24H #30 patch 07/18/13 Unknown Rx Pantoprazole [Protonix TAB] 40 mg PO QDAY #30 tablet 07/18/13 Unknown Rx Thiamine [Vitamin B-1] 100 mg PO QDAY #30 tablet 07/18/13 Unknown Rx Active Meds: Active Medications Acetaminophen/Hydrocodone Bitart ([place] 7.5/325) 1 each PO Q8H PRN PRN Reason: Pain, Moderate (4-6) Last Admin: 04/27/19 12:24 Dose: 1 each Documented by: Folic Acid (Folvite) 1 mg PO QDAY [facility] Last Admin: 04/27/19 09:13 Dose: 1 mg Documented by: Heparin Sodium (Porcine) (Heparin) 5,000 unit SUB-Q Q12HR [facility] Last Admin: 04/27/19 09:29 Dose: 5,000 unit Documented by: Azithromycin 500 mg/ Sodium (Chloride) 250 mls @ 250 mls/hr IV Q24H [facility]; Protocol Last Admin: 04/26/19 20:27 Dose: 250 mls/hr Documented by: Potassium Chloride 20 meq/ (Dextrose/Sodium Chloride) 1,010 mls @ 125 mls/hr IV DIRECT NR Stop: 04/27/19 18:00 Last Admin: 04/27/19 10:53 Dose: 125 mls/hr Documented by: Lorazepam (Ativan) 2 mg IV Q1H PRN PRN Reason: CIWA-Ar 8-15 Nicotine (Habitrol) 14 mg TD Q24H [facility] Last Admin: 04/26/19 20:27 Dose: 14 mg Documented by: Pantoprazole Sodium (Protonix) 40 mg PO QDAY [facility] Last Admin: 04/27/19 09:13 Dose: 40 mg Documented by: Thiamine HCl (Vitamin B-1) 100 mg PO QDAY [facility] Last Admin: 04/27/19 09:13 Dose: 100 mg Documented by: Review of Systems - Review of Systems All systems: negative (per HPI) Exam - Constitutional Vital Signs: Temp Pulse Resp BP Pulse Ox 97.8 F 83 22 104/78 100 04/27/19 11:53 04/27/19 11:53 04/27/19 11:53 04/27/19 11:53 04/27/19 11:53 General appearance: no acute distress, other (thin male) - Respiratory Respiratory effort: normal Respiratory: bilateral: diminished - Cardiovascular Rhythm: regular Heart Sounds: Present: S1 & S2 Extremities: No edema, Full ROM - Gastrointestinal General gastrointestinal: Present: soft, non-tender, non-distended - Neurologic Neurological: alert and oriented x3 - Psychiatric Psychiatric: appropriate mood/affect - Labs CBC & Chem 7: 04/26/19 13:17 04/27/19 08:53 Lab Results: Laboratory Results - last 24 hr 04/26/19 04/26/19 04/26/19 13:17 13:17 13:17 WBC 13.3 H RBC 4.85 Hgb 14.7 Hct 43.6 MCV 90 MCH 30 MCHC 34 RDW 13.7 Plt Count 209 Lymph % (Auto) 16.4 [place] % (Auto) 8.4 H Eos % (Auto) 0.3 Baso % (Auto) 0.4 Lymph # 2.2 [place] # 1.1 H Eos # 0.0 Baso # 0.1 Seg Neutrophils % 74.5 H Seg Neutrophils # 9.9 H Sodium 133 L Potassium 3.0 L Chloride 80.4 L Carbon Dioxide 30 Anion Gap 26 BUN 33 H Creatinine 0.9 Estimated GFR > 60 BUN/Creatinine Ratio 37 Glucose 116 H Calcium 9.2 Magnesium Total Bilirubin Direct Bilirubin Indirect Bilirubin AST ALT Alkaline Phosphatase Lactate Dehydrogenase Total Creatine Kinase 99 CK-MB (CK-2) 1.3 CK-MB (CK-2) Rel Index 1.3 Troponin T < 0.010 NT-Pro-B Natriuret Pep 319.5 Total Protein Albumin Albumin/Globulin Ratio Lipase 38 Plasma/Serum Alcohol 04/26/19 04/26/19 04/27/19 18:00 18:00 08:53 WBC RBC Hgb Hct MCV MCH MCHC RDW Plt Count Lymph % (Auto) [place] % (Auto) Eos % (Auto) Baso % (Auto) Lymph # [place] # Eos # Baso # Seg Neutrophils % Seg Neutrophils # Sodium 139 Potassium 4.0 D Chloride 92.1 L Carbon Dioxide 32 H Anion Gap 19 BUN 24 H Creatinine 0.8 Estimated GFR > 60 BUN/Creatinine Ratio 30 Glucose 97 Calcium 9.5 Magnesium Total Bilirubin 1.70 H 2.10 H Direct Bilirubin 0.5 H 0.6 H Indirect Bilirubin 1.2 1.5 AST 23 27 ALT 34 34 Alkaline Phosphatase 56 60 Lactate Dehydrogenase 161 Total Creatine Kinase CK-MB (CK-2) CK-MB (CK-2) Rel Index Troponin T NT-Pro-B Natriuret Pep Total Protein 6.2 L 7.2 Albumin 3.8 L 3.9 Albumin/Globulin Ratio 1.6 1.2 Lipase Plasma/Serum Alcohol < 0.01 04/27/19 08:53 WBC RBC Hgb Hct MCV MCH MCHC RDW Plt Count Lymph % (Auto) [place] % (Auto) Eos % (Auto) Baso % (Auto) Lymph # [place] # Eos # Baso # Seg Neutrophils % Seg Neutrophils # Sodium Potassium Chloride Carbon Dioxide Anion Gap BUN Creatinine Estimated GFR BUN/Creatinine Ratio Glucose Calcium Magnesium 2.50 H Total Bilirubin Direct Bilirubin Indirect Bilirubin AST ALT Alkaline Phosphatase Lactate Dehydrogenase Total Creatine Kinase CK-MB (CK-2) CK-MB (CK-2) Rel Index Troponin T NT-Pro-B Natriuret Pep Total Protein Albumin Albumin/Globulin Ratio Lipase Plasma/Serum Alcohol - Imaging CT Scan: report reviewed Assessment and Plan 1. Abdominal pain - improved at the time of exam; requesting to eat. ct w/o acute findings. will monitor for time being given other medical issues and improved symptoms 2. Alcohol abuse - monitor for withdrawal per primary 3. Dyspnea/emphysema 4. Chest pain
[2019-04-27] MEDS ORDERED: EMTRICITABINE 200 MG CAP PO SCH (15:15)
[2019-04-27] MEDS ORDERED: TENOFOVIR 300 MG TAB PO SCH (15:15)
[2019-04-27] MEDS ORDERED: DOLUTEGRAVIR 50 MG TAB PO SCH (16:00)
[2019-04-27] MEDS: ONDANSETRON 4 MG/2 ML INJ IV PRN (18:27)
[2019-04-27] MEDS: NICOTINE 14 MG/24 HR PATCH TD SCH (21:34)
[2019-04-28] MEDS: HYDROcodone/ACETAMINOPHEN 7.5-325MG TAB PO PRN (01:06)
[2019-04-28] MEDS: ONDANSETRON 4 MG/2 ML INJ IV PRN (01:07)
[2019-04-28 05:39] VITALS: BP 100/67
--- NOTE | 2019-04-28 05:57 | Event Note ---
Date: 04/28/19 Notified by nurse that pt removed INT, day care assistant and gown. Pt decided that he wanted to leave and did not want to sign AMA paperwork. Nurse attempted to follow him but hurried down the stairs and disappeared out nurse's sight. Security was notified and unable to locate patient in building.
[2019-04-29 22:21] LABS: HIV-1 RNA QN PCR <1.30 Log cps/mL; HIV-1 RNA QN PCR <20 Copies/mL
[2019-05-06 12:15] LABS: CD19, Absolute SEE SCANNED RESULT; CD3, Absolute SEE SCANNED RESULT; Lymphocytes, Absolute SEE SCANNED RESULT
[2019-05-06 12:16] LABS: CD3, Percentage SEE SCANNED RESULT; CD4, Absolute SEE SCANNED RESULT; CD4, Percentage SEE SCANNED RESULT; CD4/CD8 Ratio SEE SCANNED RESULT; CD8, Absolute SEE SCANNED RESULT; CD8, Percentage SEE SCANNED RESULT
== END 2019-04-28 05:50 | disposition left against medical advice (07) | DRG 391 ==
LOC: ED 12:54 → 3A 04-27 00:08
PROVIDERS: ADMIT Internal Medicine; ATTEND Internal Medicine
DX: R10.13 Epigastric pain (principal); B20 Human immunodeficiency virus [HIV] disease; E43 Unspecified severe protein-calorie malnutrition; G43.909 Migraine, unspecified, not intractable, without status migrainosus; F10.20 Alcohol dependence, uncomplicated; Y90.9 Presence of alcohol in blood, level not specified; K21.9 Gastro-esophageal reflux disease without esophagitis; J43.9 Emphysema, unspecified; R07.89 Other chest pain; E87.6 Hypokalemia; R65.10 Systemic inflammatory response syndrome (SIRS) of non-infectious origin without acute organ dysfunction; E87.1 Hypo-osmolality and hyponatremia; F17.203 Nicotine dependence unspecified, with withdrawal; Z68.1 Body mass index [BMI] 19.9 or less, adult
CPT/HCPCS: 36415; 70450; 71045; 71260; 74177; 80048; 80053; 80076; 80320; 82024; 82247; 82248; 82550; 82553; 83010; 83615; 83690; 83735; 83880; 84484; 85025; 87536; 93005; 93010; 96361; 96374; 96375; 99285; 99406; G0378; G0480; J0456; J1644; J2270; J2405; J3480; J7030; J7050; Q9967